=== PATIENT | male | born 1940 | race Caucasian/White ===

== ENCOUNTER 2017-12-25 14:03 | Inpatient (IN) ==
[2017-12-26] MEDS ORDERED: *HR* OxyCODONE Immed Rel 5 MG TABLET PO PRN (18:04)
[2017-12-26] MEDS: *HR* OxyCODONE Immed Rel 5 MG TABLET PO PRN (18:38)
[2017-12-26] MEDS: Aspirin 325 MG TABLET PO SCH (21:29)
[2017-12-26] MEDS: Latanoprost 2.5 ML BOTTLE BOTH EYES SCH (21:31)
[2017-12-27] MEDS: *HR* OxyCODONE Immed Rel 5 MG TABLET PO PRN ×4 (02:43→22:51)
[2017-12-27 07:02] LABS: Basophils # 0.1 K/mcL (0.0-0.2); Basophils % 0.6 %; Eosinophils # 0.6 K/mcL (0.0-0.6); Eosinophils % 6.5 %; Hematocrit 26.9 % (37.5-50.1); Hemoglobin 8.8 g/dL (12.9-16.9); Immature Granulocytes % 0.5 % (0-4); Lymphocytes # 2.2 K/mcL (0.6-4.6); Lymphocytes % 25.9 %; Mean Corpuscular HGB Conc 32.7 g/dL (31.6-35.5); Mean Corpuscular Hemoglobin 30.3 pg (28.0-33.3); Mean Corpuscular Volume 92.8 fL (83.0-100.0); Mean Platelet Volume 10.3 fL (9.4-12.4); Monocytes # 1.1 K/mcL (0.0-1.3); Monocytes % 13.2 %; Neutrophils # 4.5 K/mcL (1.6-8.9); Platelet Count 159 K/mcL (140-400); Red Cell Distribution Width 13.3 % (11.5-14.5); Segmented Neutrophils % 53.3 %
[2017-12-27 07:03] LABS: INR 1.1; Prothrombin Time 12.4 Seconds (9.4-12.1)
[2017-12-27 07:05] LABS: Activated Partial Thrombo Time 25.6 Seconds (26.0-36.0)
[2017-12-27 07:22] LABS: BUN/Creatinine Ratio 21 (6-26); Blood Urea Nitrogen 19 mg/dL (8-23); Calcium 8.8 mg/dL (8.6-10.3); Carbon Dioxide 27 mEq/L (23-29); Chloride 101 mEq/L (98-107); Glucose 128 mg/dL (70-105); Osmolality,Calculated 286 (280-300); Potassium 3.9 mEq/L (3.5-5.1); Sodium 136 mEq/L (136-145); eGFR For African Americans > 60 (> 60); eGFR For Non-African Americans > 60 (> 60)
[2017-12-27] MEDS: Aspirin 325 MG TABLET PO SCH ×2 (10:54→22:49)
[2017-12-27] MEDS: Cholecalciferol (D-3) 1,000 UNIT TABLET PO SCH (10:54)
[2017-12-27] MEDS: Multivit/Ca/Min/Fe/FA 1 TAB TABLET PO SCH (10:55)
[2017-12-27] MEDS: *HR* Metformin 500 MG TABLET PO SCH (10:55)
--- NOTE | 2017-12-27 11:37 | Internal Med History&Physical ---
Date of Encounter: 12/27/17 Time of Encounter: 11:34 Assessment and Plan (1) Total knee replacement status Current visit: Yes Status: Acute Patient with complaints of increased pain during mobilization while at physical therapy. States current pain medications have been effective. Left knee surgical incision appears healthy and intact but noted swelling. No ecchymosis noted. Continuous icing it in use. We will continue on current pain medications and will add Flexeril when necessary. Qualifiers: Laterality: left Qualified Code(s): Z96.652 - Presence of left artificial knee joint (2) Diabetes 1.5, managed as type 2 Current visit: Yes Status: Chronic No current issues. We will continue with metformin. We will continue to monitor glucose. (3) CAD (coronary artery disease) Current visit: Yes Status: Chronic No acute issues. Patient denies any chest discomfort or palpitations. Lungs are clear. We will continue his current medications. Qualifiers: Coronary Disease-Associated Artery/Lesion type: bypass graft, autologous artery Associated angina: without angina Qualified Code(s): I25.810 - Atherosclerosis of coronary artery bypass graft(s) without angina pectoris Internal Medicine - H&P: HPI Admitted From: Intrahospital Transfer Plans for Post Hospital Care: Home History of present illness: Mr. Vu is a 77 year old male who was admitted to this facility for physical therapy and rehabilitation following a left total knee replacement. Patient has a history of CAD, DM, DDD and LBP. Patient's recovery at [facility] was uneventful per medical records. Patient appears relaxed, but states that he has had increased pain when attempting to mobilize. Patient states that his pain medications seem to work well, but the duration is not long enough. Patient states today he had cut his therapy short due to the pain. Patient has continuous icing in place. Left knee surgical incision appears healthy and intact with no ecchymosis noted. Left knee does appear swollen, but only minimal limitations to range of motion. Patient denies any other discomforts or shortness of breath. Past Med Surg Social Fam HX - Past Medical History Medical history: arthritis, cancer, diabetes, hypertension, TIA, other - Past Surgical History Surgical History: ureteral stent - Social History Smoking Status: Never smoker Alcohol use: none Drug use: none - Family History Mother Hx Family Cancer: Yes Father Hx Family Neuromuscular Disorders: Yes Internal Medicine - H&P: Meds metFORMIN [Glucophage] 500 mg PO DAILY 01/13/16 [History] Atorvastatin [Lipitor] 40 mg PO HS 08/13/17 [History] Latanoprost [Xalatan] 1 drop BOTH EYES HS 08/13/17 [History] Multivit/Ca/Min/Fe/FA [Thera M Plus] 1 each PO DAILY 08/13/17 [History] Tamsulosin [Flomax] 0.4 mg PO DAILY 08/13/17 [History] Timolol Maleate 0.25% [Timolol Maleate 0.25%] 1 drop LEFT EYE 0900 08/13/17 [ History] Cholecalciferol (D-3) [Vitamin D] 1,000 unit PO DAILY 12/26/17 [History] Metoprolol [Lopressor] 25 mg PO BID 12/26/17 [History] 3 Allergy/AdvReac Type Severity Reaction Status Date / Time No Known Allergies Allergy Verified 01/13/16 19:18 All Systems PM: A 10-system review of systems was performed and is negative for pertinent findings except as documented above in the HPI. - Constitutional Constitutional: no chills, no fever(s), no night sweats - EENT Eyes: no change in vision, no discharge, no pain, no photophobia Ears: no ear discharge, no ear pain, no tinnitus Nose, mouth and throat: no dysphagia, no nasal discharge, no neck pain, no sore throat - Cardiovascular Cardiovascular ROS IM: no chest pain, no diaphoresis, no dyspnea, no lightheadedness, no palpitations, no syncope - Respiratory Respiratory: no cough, no dyspnea, no wheezing, no excessive phlegm production - Gastrointestinal Gastrointestinal: no abdominal pain, no diarrhea, no hematemesis, no hematochezia, no melena, no nausea, no vomiting - Musculoskeletal Musculoskeletal ROS IM: as per HPI, joint swelling, no numbness, no tingling - Integumentary Integumentary IM: no rash, no unusual bruising - Neurological Neurological ROS: no confusion, no convulsions, no focal weakness, no numbness, no tingling, no tremor(s) - Hematologic/Lymphatic Hematologic/Lymphatic: no easy bruising - Constitutional Vitals: Temp Pulse Resp BP Pulse Ox 97.7 F 71 18 160/89 93 12/27/17 07:48 12/27/17 07:48 12/27/17 07:48 12/27/17 07:48 12/27/17 07:48 General appearance: Present: A&O X 3, pleasant - Head Head exam: Present: atraumatic, normocephalic - Eye Eye exam: Present: PERRL, conjuntiva pink, sclera anicteric Pupils: Present: PERRL - Neck Neck exam general surgery: Present: supple, trachea midline. Absent: lymphadenopathy - Respiratory Respiratory exam: Present: CTAB. Absent: accessory muscle use, rales, rhonchi, wheezes Additional comments: Throughout upper chatman, but noted diminished posterior basilar chatman - Cardiovascular Cardiovascular exam: Present: RRR, +S1, +S2. Absent: diastolic murmur, gallop, rubs, systolic murmur - GI/Abdominal GI/Abdominal exam: Present: normal bowel sounds, soft, no peritoneal signs. Absent: distended, tenderness - Extremities Exam Extremities exam: Present: warm, radial pulses palpable and symmetrical. Absent : calf tenderness, cyanotic, pedal edema Additional comments: Left knee appears swollen. Left knee surgical incision appears healthy and intact. No ecchymosis. Minimal loss of range of motion currently. Continue with icing in place - Neurological Exam Neurological exam: Present: CN II-XII intact, oriented X3, no focal deficits. Absent: pronater drift, facial droop, speech deficit - Skin Skin exam: Present: dry, intact Internal Med - H&P Results - Labs CBC & Chem 7: 12/27/17 06:15 12/27/17 06:15 Labs: Short CBC 12/27/17 Range/Units 06:15 WBC 8.5 (4.3-11.1) K/mcL Hgb 8.8 L (12.9-16.9) g/dL Hct 26.9 L (37.5-50.1) % Plt Count 159 (140-400) K/mcL Neutrophils # 4.5 (1.6-8.9) K/mcL BMP 12/27/17 06:15 Sodium 136 Potassium 3.9 Chloride 101 Carbon Dioxide 27 BUN 19 Creatinine 0.90 Glucose 128 H Calcium 8.8 - VTE Documentation of Mechanical Device: Graduated compression elastic hosiery
[2017-12-27] MEDS ORDERED: cloNIDine HCl 0.1 MG TABLET PO PRN (13:01)
[2017-12-27] MEDS: Latanoprost 2.5 ML BOTTLE BOTH EYES SCH (22:55)
[2017-12-28] MEDS: tiZANidine 4 MG TABLET PO PRN ×3 (00:18→21:36)
[2017-12-28] MEDS: *HR* OxyCODONE Immed Rel 5 MG TABLET PO PRN ×2 (06:48→15:16)
[2017-12-28] MEDS: Cholecalciferol (D-3) 1,000 UNIT TABLET PO SCH (08:29)
[2017-12-28] MEDS: Multivit/Ca/Min/Fe/FA 1 TAB TABLET PO SCH (08:29)
[2017-12-28] MEDS: *HR* Metformin 500 MG TABLET PO SCH (08:29)
[2017-12-28] MEDS: Aspirin 325 MG TABLET PO SCH ×2 (08:29→21:26)
--- NOTE | 2017-12-28 09:21 | Internal Med Progress Note ---
Date of Encounter: 12/28/17 Time of Encounter: 09:19 - Assessment and plan (1) Diabetes 1.5, managed as type 2 Current Visit: Yes Status: Chronic Assessment and plan: stable on meds followup and adjust meds as needed (2) Total knee replacement status Current Visit: Yes Status: Acute Assessment and plan: stable , Pain is well controlled on present medications . Getting PT Qualifiers: Laterality: left Qualified Code(s): Z96.652 - Presence of left artificial knee joint (3) CAD (coronary artery disease) Current Visit: Yes Status: Chronic Assessment and plan: not an active issues at the present time continue present medications no chest SOB or any other symptoms to suggest active CAD Qualifiers: Coronary Disease-Associated Artery/Lesion type: bypass graft, autologous artery Associated angina: without angina Qualified Code(s): I25.810 - Atherosclerosis of coronary artery bypass graft(s) without angina pectoris (4) Anemia Current Visit: Yes Status: Chronic Assessment and plan: most likely due to blood loss , Labs ordered to assess for cause. Qualifiers: Anemia type: iron deficiency - Subjective Interval history: feeling much better . his pain and spasm have improved with pain meds and muscle relaer. No chest pain no nausea vomiting or diarrhea no fever or chills overall he feels fine and feels that he is getting better by the day - Constitutional Vitals: Temp Pulse Resp BP Pulse Ox 97.6 F 62 20 126/86 97 12/28/17 06:52 12/28/17 06:52 12/28/17 06:52 12/28/17 06:52 12/28/17 06:52 General appearance: Present: A&O X 3, pleasant, no acute distress - Head Head exam: Present: atraumatic - Eye Eye exam: Present: EOMI, PERRL - ENT ENT exam: Present: mucous membranes moist - Neck Neck exam general surgery: Present: full ROM, supple. Absent: lymphadenopathy, tenderness, nuchal rigidity - Respiratory Respiratory exam: Present: CTAB. Absent: respiratory distress, rhonchi, stridor , wheezes, tachypnea - Cardiovascular Cardiovascular exam: Present: RRR, +S1, +S2, systolic murmur. Absent: irregular rhythm, JVD, rubs Additional comments: soft systolic murmur - GI/Abdominal GI/Abdominal exam: Present: normal bowel sounds, soft. Absent: diminished bowel sounds, guarding, rebound, rigid - Extremities Exam Extremities exam: Present: full ROM. Absent: joint swelling, pedal edema - Neurological Exam Neurological exam: Present: CN II-XII intact, oriented X3, no focal deficits Internal Medicine: Result - Labs CBC & Chem 7: 12/27/17 06:15 12/27/17 06:15 - ABG Interpretation ABG results: PT/INR, D-dimer PT 12.4 Seconds (9.4-12.1) H 12/27/17 06:15 - VTE Documentation of Mechanical Device: Graduated compression elastic hosiery Consult Discharge Plan - Plan Referrals: Rob Cisneros MD [Primary Care Provider] -
[2017-12-28] MEDS: Latanoprost 2.5 ML BOTTLE BOTH EYES SCH (21:36)
[2017-12-29] MEDS: *HR* OxyCODONE Immed Rel 5 MG TABLET PO PRN ×2 (00:05→08:51)
--- NOTE | 2017-12-29 08:41 | Internal Med Progress Note ---
Date of Encounter: 12/29/17 Time of Encounter: 08:39 - Assessment and plan (1) Diabetes 1.5, managed as type 2 Current Visit: Yes Status: Chronic Assessment and plan: stable n meds no new change reasonable well controlled for his age (2) Total knee replacement status Current Visit: Yes Status: Acute Assessment and plan: stable wound healing well PT. Qualifiers: Laterality: left Qualified Code(s): Z96.652 - Presence of left artificial knee joint (3) CAD (coronary artery disease) Current Visit: Yes Status: Chronic Assessment and plan: stable no active issues Qualifiers: Coronary Disease-Associated Artery/Lesion type: bypass graft, autologous artery Associated angina: without angina Qualified Code(s): I25.810 - Atherosclerosis of coronary artery bypass graft(s) without angina pectoris (4) Anemia Current Visit: Yes Status: Chronic Assessment and plan: Labs ae pending at the present time On iron Qualifiers: Anemia type: iron deficiency - Subjective Interval history: feeling much better . slept well last night no new issues pIan is well control . Blood sugars are reasonable well controlled He is getting his PT no active complains at the present time - Constitutional Vitals: Temp Pulse Resp BP Pulse Ox 97.6 F 69 16 157/91 96 12/29/17 07:34 12/29/17 07:34 12/29/17 07:34 12/29/17 07:34 12/29/17 07:34 General appearance: Present: A&O X 3, pleasant, no acute distress - Head Head exam: Present: atraumatic - Eye Eye exam: Present: EOMI, PERRL Pupils: Present: PERRL - Neck Neck exam general surgery: Present: supple. Absent: tenderness, nuchal rigidity - Respiratory Respiratory exam: Present: CTAB. Absent: respiratory distress, rhonchi, stridor , wheezes - Cardiovascular Cardiovascular exam: Present: RRR, +S1, +S2, systolic murmur. Absent: irregular rhythm, JVD - GI/Abdominal GI/Abdominal exam: Present: normal bowel sounds, soft. Absent: guarding, rebound, rigid - Extremities Exam Extremities exam: Absent: pedal edema, tenderness Internal Medicine: Result - Labs CBC & Chem 7: 12/27/17 06:15 12/27/17 06:15 - ABG Interpretation ABG results: PT/INR, D-dimer PT 12.4 Seconds (9.4-12.1) H 12/27/17 06:15 - VTE Documentation of Mechanical Device: Graduated compression elastic hosiery Consult Discharge Plan - Plan Referrals: Rob Cisneros MD [Primary Care Provider] -
[2017-12-29] MEDS: Cholecalciferol (D-3) 1,000 UNIT TABLET PO SCH (08:51)
[2017-12-29] MEDS: *HR* Metformin 500 MG TABLET PO SCH (08:51)
[2017-12-29] MEDS: Multivit/Ca/Min/Fe/FA 1 TAB TABLET PO SCH (08:51)
[2017-12-29] MEDS: Aspirin 325 MG TABLET PO SCH ×2 (08:51→21:57)
[2017-12-29 09:04] LABS: Thyroid Stimulating Hormone 2.977 mcIU/mL (0.340-5.600)
[2017-12-29] MEDS: Latanoprost 2.5 ML BOTTLE BOTH EYES SCH (21:58)
[2017-12-30 07:48] LABS: Basophils # 0.1 K/mcL (0.0-0.2); Basophils % 0.4 %; Eosinophils # 0.2 K/mcL (0.0-0.6); Eosinophils % 1.4 %; Hematocrit 30.9 % (37.5-50.1); Immature Granulocytes % 0.4 % (0-4); Lymphocytes # 2.6 K/mcL (0.6-4.6); Lymphocytes % 22.5 %; Mean Corpuscular HGB Conc 32.4 g/dL (31.6-35.5); Mean Corpuscular Hemoglobin 30.4 pg (28.0-33.3); Mean Corpuscular Volume 93.9 fL (83.0-100.0); Mean Platelet Volume 9.4 fL (9.4-12.4); Monocytes # 1.6 K/mcL (0.0-1.3); Monocytes % 14.3 %; Platelet Count 267 K/mcL (140-400); Red Blood Count 3.29 M/mcL (4.19-5.50); Red Cell Distribution Width 13.9 % (11.5-14.5)
[2017-12-30 08:03] LABS: BUN/Creatinine Ratio 17 (6-26); Blood Urea Nitrogen 20 mg/dL (8-23); Calcium 9.4 mg/dL (8.6-10.3); Carbon Dioxide 27 mEq/L (23-29); Chloride 99 mEq/L (98-107); Glucose 157 mg/dL (70-105); Osmolality,Calculated 286 (280-300); Potassium 4.2 mEq/L (3.5-5.1); Sodium 135 mEq/L (136-145); eGFR For African Americans > 60 (> 60); eGFR For Non-African Americans > 60 (> 60)
[2017-12-30] MEDS: *HR* OxyCODONE Immed Rel 5 MG TABLET PO PRN ×2 (08:38→17:44)
[2017-12-30] MEDS: Multivit/Ca/Min/Fe/FA 1 TAB TABLET PO SCH (08:39)
[2017-12-30] MEDS: Aspirin 325 MG TABLET PO SCH ×2 (08:39→20:43)
[2017-12-30] MEDS: *HR* Metformin 500 MG TABLET PO SCH (08:39)
[2017-12-30] MEDS: Cholecalciferol (D-3) 1,000 UNIT TABLET PO SCH (08:39)
--- NOTE | 2017-12-30 15:22 | Internal Med Progress Note ---
Date of Encounter: 12/30/17 Time of Encounter: 15:20 - Assessment and plan (1) Total knee replacement status Current Visit: Yes Status: Acute Assessment and plan: No acute issues. Surgical incision appears healthy and intact. Left knee remains slightly swollen and will continue with continuous icing. Pain controlled well with current medications. Patient progressing well with physical therapy. Qualifiers: Laterality: left Qualified Code(s): Z96.652 - Presence of left artificial knee joint (2) Diabetes 1.5, managed as type 2 Current Visit: Yes Status: Chronic Assessment and plan: Acute issues. Glucose well managed with current regimen. We will continue with current medications (3) CAD (coronary artery disease) Current Visit: Yes Status: Chronic Assessment and plan: No acute issues. Patient denies any chest discomforts or shortness of breath. We will continue with current plan of care. Patient to continue with physical therapy Qualifiers: Coronary Disease-Associated Artery/Lesion type: bypass graft, autologous artery Associated angina: without angina Qualified Code(s): I25.810 - Atherosclerosis of coronary artery bypass graft(s) without angina pectoris - Time Spent With Patient less than 15 minutes - Subjective Interval history: No acute issue with patient denied any discomforts forms of breath. Patient continues to progress well with PT/OT - Constitutional Vitals: Temp Pulse Resp BP Pulse Ox 98.1 F 73 16 141/79 95 12/30/17 07:00 12/30/17 07:00 12/30/17 07:00 12/30/17 07:00 12/30/17 07:00 General appearance: Present: A&O X 3, pleasant, no acute distress - Head Head exam: Present: atraumatic, normocephalic - Eye Eye exam: Present: PERRL, conjuntiva pink, sclera anicteric Pupils: Present: PERRL - Neck Neck exam general surgery: Present: supple, trachea midline. Absent: lymphadenopathy - Respiratory Respiratory exam: Present: CTAB. Absent: accessory muscle use, rales, rhonchi, wheezes - Cardiovascular Cardiovascular exam: Present: RRR, +S1, +S2. Absent: diastolic murmur, gallop, rubs, systolic murmur - GI/Abdominal GI/Abdominal exam: Present: normal bowel sounds, soft, no peritoneal signs. Absent: distended, tenderness - Extremities Exam Extremities exam: Present: warm, radial pulses palpable and symmetrical. Absent : calf tenderness, cyanotic, pedal edema Additional comments: Left knee remains slightly swollen with surgical incision appearing healthy and intact. No ecchymosis noted. Patient continues with continuous icing - Neurological Exam Neurological exam: Present: CN II-XII intact, oriented X3, no focal deficits. Absent: pronater drift, facial droop, speech deficit - Skin Skin exam: Present: dry, intact Internal Medicine: Result - Labs CBC & Chem 7: 12/30/17 07:22 12/30/17 07:22 Labs: Short CBC 12/30/17 Range/Units 07:22 WBC 11.4 H (4.3-11.1) K/mcL Hgb 10.0 L (12.9-16.9) g/dL Hct 30.9 L (37.5-50.1) % Plt Count 267 D (140-400) K/mcL Neutrophils # 7.0 (1.6-8.9) K/mcL BMP 12/30/17 07:22 Sodium 135 L Potassium 4.2 Chloride 99 Carbon Dioxide 27 BUN 20 Creatinine 1.16 Glucose 157 H Calcium 9.4 - ABG Interpretation ABG results: PT/INR, D-dimer PT 12.4 Seconds (9.4-12.1) H 12/27/17 06:15 - VTE Documentation of Mechanical Device: Graduated compression elastic hosiery Consult Discharge Plan - Plan Referrals: Rob Cisneros MD [Primary Care Provider] -
[2017-12-30] MEDS: Latanoprost 2.5 ML BOTTLE BOTH EYES SCH (20:44)
[2017-12-30] MEDS: tiZANidine 4 MG TABLET PO PRN (20:44)
[2017-12-31] MEDS: *HR* OxyCODONE Immed Rel 5 MG TABLET PO PRN ×3 (04:03→20:27)
[2017-12-31] MEDS: Multivit/Ca/Min/Fe/FA 1 TAB TABLET PO SCH (08:02)
[2017-12-31] MEDS: Cholecalciferol (D-3) 1,000 UNIT TABLET PO SCH (08:02)
[2017-12-31] MEDS: *HR* Metformin 500 MG TABLET PO SCH (08:02)
[2017-12-31] MEDS: tiZANidine 4 MG TABLET PO PRN (08:02)
[2017-12-31] MEDS: Aspirin 325 MG TABLET PO SCH ×2 (08:02→20:27)
--- NOTE | 2017-12-31 08:57 | Internal Med Progress Note ---
Date of Encounter: 12/31/17 Time of Encounter: 08:54 - Assessment and plan (1) Diabetes 1.5, managed as type 2 Current Visit: Yes Status: Chronic Assessment and plan: Acute issues. Glucose well managed with current regimen. We will continue with current medications (2) Total knee replacement status Current Visit: Yes Status: Acute Assessment and plan: No acute issues. Surgical incision no signs of infection. Left knee remains slightly swollen and will continue with continuous icing. Pain controlled well with current medications. Patient progressing well with physical therapy. will continue to follow progress. Qualifiers: Laterality: left Qualified Code(s): Z96.652 - Presence of left artificial knee joint - Time Spent With Patient less than 15 minutes - Subjective Interval history: states pain is controlled with medications. L knee swelling and bruising around knee. last BM 2 days ago. had miralax this am. maintaining appetite and hydration. denies any issues. pariticpating well with thearpy. - Constitutional Vitals: Temp Pulse Resp BP Pulse Ox 97.9 F 65 16 138/72 96 12/31/17 07:11 12/31/17 07:11 12/31/17 07:11 12/31/17 07:11 12/31/17 07:11 General appearance: Present: A&O X 3, pleasant, no acute distress, answers questions appropriately - Head Head exam: Present: atraumatic, normocephalic - Eye Eye exam: Present: PERRL, conjuntiva pink, sclera anicteric Pupils: Present: PERRL - Neck Neck exam general surgery: Present: supple, trachea midline. Absent: lymphadenopathy - Respiratory Respiratory exam: Present: CTAB. Absent: accessory muscle use, rales, rhonchi, wheezes - Cardiovascular Cardiovascular exam: Present: RRR, +S1, +S2. Absent: diastolic murmur, gallop, rubs, systolic murmur - GI/Abdominal GI/Abdominal exam: Present: normal bowel sounds, soft, no peritoneal signs. Absent: distended, tenderness - Extremities Exam Extremities exam: Present: warm, radial pulses palpable and symmetrical. Absent : calf tenderness, cyanotic, pedal edema Additional comments: Left knee.. localized edema at knee. incision with drsg intact. no drainage. bruising surrounding knee - Neurological Exam Neurological exam: Present: CN II-XII intact, oriented X3, no focal deficits. Absent: pronater drift, facial droop, speech deficit - Skin Skin exam: Present: dry, intact Internal Medicine: Result - Labs CBC & Chem 7: 12/30/17 07:22 12/30/17 07:22 - ABG Interpretation ABG results: PT/INR, D-dimer PT 12.4 Seconds (9.4-12.1) H 12/27/17 06:15 - VTE Documentation of Mechanical Device: Graduated compression elastic hosiery Consult Discharge Plan - Plan Referrals: Rob Cisneros MD [Primary Care Provider] -
[2017-12-31] MEDS: Methocarbamol 500 MG TABLET PO SCH (17:23)
[2017-12-31] MEDS: Latanoprost 2.5 ML BOTTLE BOTH EYES SCH (20:28)
[2018-01-01] MEDS: Methocarbamol 500 MG TABLET PO SCH ×4 (00:30→23:51)
[2018-01-01] MEDS: *HR* OxyCODONE Immed Rel 5 MG TABLET PO PRN ×3 (06:14→20:17)
[2018-01-01] MEDS: Aspirin 325 MG TABLET PO SCH ×2 (08:24→20:16)
[2018-01-01] MEDS: *HR* Metformin 500 MG TABLET PO SCH (08:24)
[2018-01-01] MEDS: Multivit/Ca/Min/Fe/FA 1 TAB TABLET PO SCH (08:24)
[2018-01-01] MEDS: Cholecalciferol (D-3) 1,000 UNIT TABLET PO SCH (08:25)
--- NOTE | 2018-01-01 14:31 | Internal Med Progress Note ---
Date of Encounter: 01/01/18 Time of Encounter: 14:29 - Assessment and plan (1) Total knee replacement status Current Visit: Yes Status: Acute Assessment and plan: Clinically, unchanged. See comments in history of present illness above.. Qualifiers: Laterality: left Qualified Code(s): Z96.652 - Presence of left artificial knee joint (2) Constipation Current Visit: Yes Status: Acute Assessment and plan: Will review bowel regimen and give him a dose of magnesium citrate. Qualifiers: Constipation type: drug induced constipation Qualified Code(s): K59.03 - Drug induced constipation (3) Diabetes 1.5, managed as type 2 Current Visit: Yes Status: Chronic Assessment and plan: Clinically stable. Will continue current regimen. (4) CAD (coronary artery disease) Current Visit: Yes Status: Chronic Assessment and plan: Clinically stable without recent issues. Will continue current medications and watch hemoglobin to avoid stress on his heart. Qualifiers: Coronary Disease-Associated Artery/Lesion type: bypass graft, autologous artery Associated angina: without angina Qualified Code(s): I25.810 - Atherosclerosis of coronary artery bypass graft(s) without angina pectoris (5) Anemia Current Visit: Yes Status: Chronic Assessment and plan: I believe this is acute on chronic. We will follow and attribute the loss to his recent surgery. Qualifiers: Anemia type: iron deficiency Qualified Code(s): D50.0 - Iron deficiency anemia secondary to blood loss (chronic) - Time Spent With Patient less than 15 minutes - Subjective Interval history: Patient is still having significant left knee pain. He denies any change in intensity. He admits to recurrent constipation and feels like he is getting sick from it again as he had been last week. He has not had a bowel movement in the last 3 days. The patient has no shortness of breath, chest heaviness or pain, palpitation, chills or sweats, abdominal pain or changes in bowel habits, melena or hematochezia, other pain. Review of systems is otherwise unremarkable, except as mentioned above. I spoke with him about therapies concerns about training, balance and strength. In the rehabilitation team meeting today, was felt best to keep him for another 5-7 days. I reviewed our concerns about fall, injury to the knee or otherwise, etc. He agreed to stay for that length of time. - Constitutional Vitals: Temp Pulse Resp BP Pulse Ox 98 F 67 14 163/86 97 01/01/18 07:00 01/01/18 12:56 01/01/18 12:56 01/01/18 12:56 01/01/18 12:56 General appearance: Present: A&O X 3, pleasant, no acute distress, answers questions appropriately - Head Head exam: Present: atraumatic, normal inspection, normocephalic - Respiratory Respiratory exam: Present: CTAB. Absent: accessory muscle use, rales - Cardiovascular Cardiovascular exam: Present: RRR. Absent: systolic murmur - GI/Abdominal GI/Abdominal exam: Present: normal bowel sounds, soft. Absent: hepatomegaly, mass, splenomegaly, tenderness - Extremities Exam Extremities exam: Present: normal capillary refill. Absent: calf tenderness, pedal edema Internal Medicine: Result - Labs CBC & Chem 7: 12/30/17 07:22 12/30/17 07:22 - ABG Interpretation ABG results: PT/INR, D-dimer PT 12.4 Seconds (9.4-12.1) H 12/27/17 06:15 - VTE Documentation of Mechanical Device: Graduated compression elastic hosiery Consult Discharge Plan - Plan Referrals: Rob Cisneros MD [Primary Care Provider] -
--- NOTE | 2018-01-01 19:11 | Physcial Medicine-Consult Note ---
Date of Encounter: 01/01/18 Time of Encounter: 18:00 Physical Medicine - AP (1) Total knee replacement status Status: Acute Assessment and plan: Continue rehab, DVT prophylaxis,Ice prn Code(s): Z96.659 - Presence of unspecified artificial knee joint SNOMED Code(s ): 7777880936512 Physical Medicine - HPI - Data of Consult Patient: new to practice Consult date: 01/01/18 Requesting Physician: Leland Cruz MD Primary Care Provider: Rob Cisneros - Consult Narrative History of present illness: Mr. Vu is a 77 year old male S/P LTKR. Hallucinations, poor insight. Slow progress with therapies. CC: My knee hurts. Past Med Surg Social Fam HX - Past Medical History Attestation: Yes The following information was validated with the patient. Medical history: arthritis, cancer, diabetes, hypertension, TIA, other - Past Surgical History Surgical History: ureteral stent - Social History Smoking Status: Never smoker Alcohol use: none Drug use: none - Family History Mother Hx Family Cancer: Yes Father Hx Family Neuromuscular Disorders: Yes Medications and Allergies metFORMIN [Glucophage] 500 mg PO DAILY 01/13/16 [History] Atorvastatin [Lipitor] 40 mg PO HS 08/13/17 [History] Latanoprost [Xalatan] 1 drop BOTH EYES HS 08/13/17 [History] Multivit/Ca/Min/Fe/FA [Thera M Plus] 1 each PO DAILY 08/13/17 [History] Tamsulosin [Flomax] 0.4 mg PO DAILY 08/13/17 [History] Timolol Maleate 0.25% [Timolol Maleate 0.25%] 1 drop LEFT EYE 0900 08/13/17 [ History] Cholecalciferol (D-3) [Vitamin D] 1,000 unit PO DAILY 12/26/17 [History] Metoprolol [Lopressor] 25 mg PO BID 12/26/17 [History] 3 Allergy/AdvReac Type Severity Reaction Status Date / Time No Known Allergies Allergy Verified 01/13/16 19:18 All systems: reviewed and no additional remarkable complaints except as stated ( HPI) Physical Medicine - Exam - Constitutional Vitals: Temp Pulse Resp BP Pulse Ox 97.6 F 75 16 149/80 99 01/01/18 19:00 01/01/18 19:00 02/21/18 19:00 01/01/18 19:00 01/01/18 19:00 - Extremities Exam Additional comments: Left knee 110 to -3 degrees ROM min mares edema, moderate ecchymosis. No edema at the ankle. Physical Medicine - Results - Labs CBC & Chem 7: 12/30/17 07:22 12/30/17 07:22 Consult Discharge Plan - Plan Referrals: Rob Cisneros MD [Primary Care Provider] -
[2018-01-01] MEDS: Psyllium 1 PACKET POWD.PACK PO SCH (20:19)
[2018-01-01] MEDS: Latanoprost 2.5 ML BOTTLE BOTH EYES SCH (20:20)
[2018-01-02] MEDS: *HR* OxyCODONE Immed Rel 5 MG TABLET PO PRN ×2 (09:07→17:20)
[2018-01-02] MEDS: Aspirin 325 MG TABLET PO SCH ×2 (09:07→20:20)
[2018-01-02] MEDS: *HR* Metformin 500 MG TABLET PO SCH (09:07)
[2018-01-02] MEDS: Cholecalciferol (D-3) 1,000 UNIT TABLET PO SCH (09:08)
[2018-01-02] MEDS: Methocarbamol 500 MG TABLET PO SCH ×3 (09:08→23:04)
[2018-01-02] MEDS: Psyllium 1 PACKET POWD.PACK PO SCH ×2 (09:08→20:21)
[2018-01-02] MEDS: Multivit/Ca/Min/Fe/FA 1 TAB TABLET PO SCH (09:08)
--- NOTE | 2018-01-02 14:00 | Internal Med Progress Note ---
Date of Encounter: 01/02/18 Time of Encounter: 11:20 - Assessment and plan (1) Total knee replacement status Current Visit: Yes Status: Acute Assessment and plan: Clinically, unchanged. Will continue with therapies for training and safety assessment, as planned.. Qualifiers: Laterality: left Qualified Code(s): Z96.652 - Presence of left artificial knee joint (2) Constipation Current Visit: Yes Status: Acute Assessment and plan: No response yet to magnesium citrate. However, with hyperactive bowel sounds, she should have results today. If not, will repeat and/or consider a fleets enema, etc.. Qualifiers: Constipation type: drug induced constipation Qualified Code(s): K59.03 - Drug induced constipation (3) Diabetes 1.5, managed as type 2 Current Visit: Yes Status: Chronic Assessment and plan: Clinically stable. Will continue current regimen. (4) CAD (coronary artery disease) Current Visit: Yes Status: Chronic Assessment and plan: Clinically stable without recent issues. Continue current regimen.. Qualifiers: Coronary Disease-Associated Artery/Lesion type: bypass graft, autologous artery Associated angina: without angina Qualified Code(s): I25.810 - Atherosclerosis of coronary artery bypass graft(s) without angina pectoris (5) Anemia Current Visit: Yes Status: Chronic Assessment and plan: I believe this is acute on chronic. Stable, in terms of vital signs and symptoms. We will follow and attribute the loss to his recent surgery. Qualifiers: Anemia type: iron deficiency Qualified Code(s): D50.0 - Iron deficiency anemia secondary to blood loss (chronic) - Time Spent With Patient less than 15 minutes - Subjective Interval history: Patient is without new complaint. He continues to have moderate to moderately severe left knee pain that is slightly improved versus yesterday. He states he has not had a bowel movement, even though he took his 150 mL bottle of technetium citrate, yesterday. The patient has no shortness of breath, chest heaviness or pain, palpitation, chills or sweats, abdominal pain or changes in bowel habits, melena or hematochezia, other pain. Review of systems is otherwise unremarkable, except as mentioned above. . - Constitutional Vitals: Temp Pulse Resp BP Pulse Ox 97.9 F 70 16 151/82 95 01/02/18 07:00 01/02/18 07:00 01/02/18 07:00 01/02/18 07:00 01/02/18 07:00 General appearance: Present: A&O X 3, pleasant, no acute distress, answers questions appropriately - Head Head exam: Present: atraumatic, normal inspection, normocephalic - Respiratory Respiratory exam: Present: CTAB. Absent: accessory muscle use - Cardiovascular Cardiovascular exam: Present: RRR. Absent: systolic murmur - GI/Abdominal GI/Abdominal exam: Present: hyperactive bowel sounds, soft. Absent: hepatomegaly, mass, splenomegaly, tenderness Additional comments: Obese and therefore difficult to palpate deeply. - Extremities Exam Extremities exam: Present: normal capillary refill. Absent: calf tenderness, pedal edema Additional comments: Knee is mildly warm without drainage or erythema. Consistent with typical postoperative course for total knee replacement. Internal Medicine: Result - Labs CBC & Chem 7: 12/30/17 07:22 12/30/17 07:22 - ABG Interpretation ABG results: PT/INR, D-dimer PT 12.4 Seconds (9.4-12.1) H 12/27/17 06:15 - VTE Documentation of Mechanical Device: Graduated compression elastic hosiery Consult Discharge Plan - Plan Referrals: Rob Cisneros MD [Primary Care Provider] -
[2018-01-02] MEDS: Latanoprost 2.5 ML BOTTLE BOTH EYES SCH (20:22)
[2018-01-03] MEDS: Multivit/Ca/Min/Fe/FA 1 TAB TABLET PO SCH (08:32)
[2018-01-03] MEDS: Cholecalciferol (D-3) 1,000 UNIT TABLET PO SCH (08:32)
[2018-01-03] MEDS: *HR* Metformin 500 MG TABLET PO SCH (08:32)
[2018-01-03] MEDS: Psyllium 1 PACKET POWD.PACK PO SCH ×2 (08:32→20:11)
[2018-01-03] MEDS: Aspirin 325 MG TABLET PO SCH ×2 (08:32→20:11)
[2018-01-03] MEDS: Methocarbamol 500 MG TABLET PO SCH ×3 (08:32→23:50)
[2018-01-03] MEDS: *HR* OxyCODONE Immed Rel 5 MG TABLET PO PRN ×2 (10:06→21:13)
--- NOTE | 2018-01-03 11:32 | Internal Med Progress Note ---
Date of Encounter: 01/03/18 Time of Encounter: 11:29 - Assessment and plan (1) Total knee replacement status Current Visit: Yes Status: Acute Assessment and plan: Clinically, unchanged. Will continue with therapies for training and safety assessment, as planned. Will continue with continuous icing. Current pain meds have been effective. Qualifiers: Laterality: left Qualified Code(s): Z96.652 - Presence of left artificial knee joint (2) Diabetes 1.5, managed as type 2 Current Visit: Yes Status: Chronic Assessment and plan: Clinically stable. Will continue current regimen. (3) CAD (coronary artery disease) Current Visit: Yes Status: Chronic Assessment and plan: Clinically stable without recent issues. Continue current regimen.. 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 Pt does have c/o continued constipation, stating that the current meds have not been very effective. Pt is without any discomforts forms of breath. Patient continues to progress well with PT/OT - Constitutional Vitals: Temp Pulse Resp BP Pulse Ox 98.6 F 78 18 123/74 100 01/03/18 07:58 01/03/18 07:58 01/03/18 07:58 01/03/18 07:58 01/03/18 07:58 General appearance: Present: A&O X 3, pleasant, no acute distress, answers questions appropriately - Head Head exam: Present: atraumatic, normocephalic - Eye Eye exam: Present: PERRL, conjuntiva pink, sclera anicteric Pupils: Present: PERRL - Neck Neck exam general surgery: Present: supple, trachea midline. Absent: lymphadenopathy - Respiratory Respiratory exam: Present: CTAB. Absent: accessory muscle use, rales, rhonchi, wheezes - Cardiovascular Cardiovascular exam: Present: RRR, +S1, +S2. Absent: diastolic murmur, gallop, rubs, systolic murmur - GI/Abdominal GI/Abdominal exam: Present: normal bowel sounds, soft, no peritoneal signs. Absent: distended, tenderness - Extremities Exam Extremities exam: Present: warm, radial pulses palpable and symmetrical. Absent : calf tenderness, cyanotic, pedal edema Additional comments: Left knee continues to have moderate amount of swelling, but no ecchymosis and surgical incision remains healthy and intact. - Neurological Exam Neurological exam: Present: CN II-XII intact, oriented X3, no focal deficits. Absent: pronater drift, facial droop, speech deficit - Skin Skin exam: Present: dry, intact Internal Medicine: Result - Labs CBC & Chem 7: 12/30/17 07:22 12/30/17 07:22 - ABG Interpretation ABG results: PT/INR, D-dimer PT 12.4 Seconds (9.4-12.1) H 12/27/17 06:15 - VTE Documentation of Mechanical Device: Graduated compression elastic hosiery Consult Discharge Plan - Plan Referrals: Rob Cisneros MD [Primary Care Provider] - (Follow up January at 1:00 PM [facility] [address] [place] [address] )
[2018-01-03] MEDS: Latanoprost 2.5 ML BOTTLE BOTH EYES SCH (20:12)
[2018-01-04] MEDS: *HR* OxyCODONE Immed Rel 5 MG TABLET PO PRN ×3 (07:07→20:25)
--- NOTE | 2018-01-04 08:26 | Internal Med Progress Note ---
Date of Encounter: 01/04/18 Time of Encounter: 08:24 - Assessment and plan (1) Diabetes 1.5, managed as type 2 Current Visit: Yes Status: Chronic Assessment and plan: No new change Blood are reasonably well controlled Continue present meds . (2) Total knee replacement status Current Visit: Yes Status: Acute Assessment and plan: No new change in PT pain is reasonably well controlled with present meds Qualifiers: Laterality: left Qualified Code(s): Z96.652 - Presence of left artificial knee joint (3) CAD (coronary artery disease) Current Visit: Yes Status: Chronic Assessment and plan: stable continue present meds Systolic BP slightly high today but previous values were well controlled continue to watch and adjust as needed Qualifiers: Coronary Disease-Associated Artery/Lesion type: bypass graft, autologous artery Associated angina: without angina Qualified Code(s): I25.810 - Atherosclerosis of coronary artery bypass graft(s) without angina pectoris (4) Anemia Current Visit: Yes Status: Chronic Assessment and plan: on iron stable Qualifiers: Anemia type: iron deficiency - Subjective Interval history: Seen as followup and on weekend coverage. He is doing fine . Actively participating in his rehab Somewhat pain today however pain meds do help - Constitutional Vitals: Temp Pulse Resp BP Pulse Ox 98.0 F 70 16 160/63 95 01/04/18 06:00 01/04/18 06:00 01/04/18 06:00 01/04/18 06:00 01/04/18 06:00 General appearance: Present: cooperative, A&O X 3, pleasant, no acute distress, answers questions appropriately - Head Head exam: Present: atraumatic - Eye Eye exam: Present: PERRL. Absent: scleral icterus, conjuntiva pink Pupils: Present: PERRL - Neck Neck exam general surgery: Present: supple. Absent: tenderness, nuchal rigidity - Respiratory Respiratory exam: Present: CTAB. Absent: respiratory distress, rhonchi, stridor , wheezes, tachypnea - Cardiovascular Cardiovascular exam: Present: +S1, +S2, systolic murmur. Absent: JVD Additional comments: soft systolic murmur - GI/Abdominal GI/Abdominal exam: Present: normal bowel sounds, soft. Absent: rebound, rigid, tenderness - Extremities Exam Extremities exam: Absent: pedal edema, tenderness - Incison Incision: Present: clean and dry, intact Internal Medicine: Result - Labs CBC & Chem 7: 12/30/17 07:22 12/30/17 07:22 - ABG Interpretation ABG results: PT/INR, D-dimer PT 12.4 Seconds (9.4-12.1) H 12/27/17 06:15 - VTE Documentation of Mechanical Device: Graduated compression elastic hosiery Consult Discharge Plan - Plan Referrals: Rob Cisneros MD [Primary Care Provider] - (Follow up January at 1:00 PM [facility] [address], [place] [phone])
[2018-01-04] MEDS: Psyllium 1 PACKET POWD.PACK PO SCH ×2 (08:39→22:07)
[2018-01-04] MEDS: Methocarbamol 500 MG TABLET PO SCH ×3 (08:40→23:24)
[2018-01-04] MEDS: *HR* Metformin 500 MG TABLET PO SCH (08:40)
[2018-01-04] MEDS: Multivit/Ca/Min/Fe/FA 1 TAB TABLET PO SCH (08:40)
[2018-01-04] MEDS: Cholecalciferol (D-3) 1,000 UNIT TABLET PO SCH (08:40)
[2018-01-04] MEDS: Aspirin 325 MG TABLET PO SCH ×2 (08:40→20:23)
[2018-01-04] MEDS: Latanoprost 2.5 ML BOTTLE BOTH EYES SCH (20:27)
[2018-01-05] MEDS: *HR* OxyCODONE Immed Rel 5 MG TABLET PO PRN ×4 (05:17→23:04)
--- NOTE | 2018-01-05 08:29 | Internal Med Progress Note ---
Date of Encounter: 01/05/18 Time of Encounter: 08:26 - Assessment and plan (1) Diabetes 1.5, managed as type 2 Current Visit: Yes Status: Chronic Assessment and plan: No new change Blood are reasonably well controlled Continue present meds .Noted an episode of high blood sugars on 500 mg metformin only increase to BID dose (2) Total knee replacement status Current Visit: Yes Status: Acute Assessment and plan: stable improving .In PT pain is well controlled Qualifiers: Laterality: left Qualified Code(s): Z96.652 - Presence of left artificial knee joint (3) CAD (coronary artery disease) Current Visit: Yes Status: Chronic Assessment and plan: stable no chest pain tolerating his PT well Qualifiers: Coronary Disease-Associated Artery/Lesion type: bypass graft, autologous artery Associated angina: without angina Qualified Code(s): I25.810 - Atherosclerosis of coronary artery bypass graft(s) without angina pectoris (4) Anemia Current Visit: Yes Status: Chronic Assessment and plan: stable Qualifiers: Anemia type: iron deficiency - Subjective Interval history: Seen as followup and on weekend coverage. He is doing fine . Pain is much better controlled increases when he walks Blood sugars reasonably well controlled no Chest pain SOB or any other complains - Constitutional Vitals: Temp Pulse Resp BP Pulse Ox 98 F 84 12 181/93 97 01/05/18 07:40 01/05/18 07:40 01/05/18 07:40 01/05/18 07:40 01/05/18 07:40 General appearance: Present: cooperative, A&O X 3, pleasant, no acute distress, answers questions appropriately - Head Head exam: Present: atraumatic - Eye Eye exam: Present: PERRL. Absent: scleral icterus, conjuntiva pink Pupils: Present: PERRL - Neck Neck exam general surgery: Present: supple. Absent: tenderness, nuchal rigidity - Respiratory Respiratory exam: Present: CTAB. Absent: decreased breath sounds, respiratory distress, rhonchi, stridor, wheezes, tachypnea - Cardiovascular Cardiovascular exam: Present: RRR, +S1, +S2, systolic murmur. Absent: irregular rhythm, JVD - GI/Abdominal GI/Abdominal exam: Present: normal bowel sounds, soft. Absent: firm, guarding, rebound, rigid, no peritoneal signs - Extremities Exam Extremities exam: Absent: pedal edema, warm - Incison Incision: Present: clean and dry, intact Comments: mild bruises on left leg - Neurological Exam Neurological exam: Present: CN II-XII intact, oriented X3, no focal deficits. Absent: facial droop, speech deficit Internal Medicine: Result - Labs CBC & Chem 7: 12/30/17 07:22 12/30/17 07:22 - ABG Interpretation ABG results: PT/INR, D-dimer PT 12.4 Seconds (9.4-12.1) H 12/27/17 06:15 - VTE Documentation of Mechanical Device: Graduated compression elastic hosiery Consult Discharge Plan - Plan Referrals: Rob Cisneros MD [Primary Care Provider] - (Follow up January at 1:00 PM [facility] [address] [place] [address] )
[2018-01-05] MEDS: Multivit/Ca/Min/Fe/FA 1 TAB TABLET PO SCH (09:06)
[2018-01-05] MEDS: Cholecalciferol (D-3) 1,000 UNIT TABLET PO SCH (09:06)
[2018-01-05] MEDS: Psyllium 1 PACKET POWD.PACK PO SCH ×2 (09:07→21:59)
[2018-01-05] MEDS: Methocarbamol 500 MG TABLET PO SCH ×3 (09:07→23:04)
[2018-01-05] MEDS: Aspirin 325 MG TABLET PO SCH ×2 (09:07→21:59)
[2018-01-05] MEDS: *HR* Metformin 500 MG TABLET PO SCH ×2 (09:34→16:28)
[2018-01-05] MEDS: Latanoprost 2.5 ML BOTTLE BOTH EYES SCH (21:58)
[2018-01-06 06:59] LABS: Basophils # 0.1 K/mcL (0.0-0.2); Basophils % 0.8 %; Eosinophils # 0.5 K/mcL (0.0-0.6); Eosinophils % 6.4 %; Hematocrit 32.6 % (37.5-50.1); Hemoglobin 10.5 g/dL (12.9-16.9); Immature Granulocytes % 0.5 % (0-4); Lymphocytes % 26.5 %; Mean Corpuscular HGB Conc 32.2 g/dL (31.6-35.5); Mean Corpuscular Hemoglobin 30.4 pg (28.0-33.3); Mean Corpuscular Volume 94.5 fL (83.0-100.0); Mean Platelet Volume 8.9 fL (9.4-12.4); Monocytes # 0.9 K/mcL (0.0-1.3); Monocytes % 11.1 %; Neutrophils # 4.2 K/mcL (1.6-8.9); Platelet Count 295 K/mcL (140-400); Red Blood Count 3.45 M/mcL (4.19-5.50); Red Cell Distribution Width 15.3 % (11.5-14.5); Segmented Neutrophils % 54.7 %
[2018-01-06 07:13] LABS: BUN/Creatinine Ratio 13 (6-26); Blood Urea Nitrogen 15 mg/dL (8-23); Calcium 9.1 mg/dL (8.6-10.3); Carbon Dioxide 28 mEq/L (23-29); Chloride 101 mEq/L (98-107); Glucose 143 mg/dL (70-105); Osmolality,Calculated 283 (280-300); Potassium 4.4 mEq/L (3.5-5.1); Sodium 135 mEq/L (136-145); eGFR For African Americans > 60 (> 60); eGFR For Non-African Americans > 60 (> 60)
[2018-01-06] MEDS: *HR* Metformin 500 MG TABLET PO SCH ×2 (08:13→17:21)
[2018-01-06] MEDS: Cholecalciferol (D-3) 1,000 UNIT TABLET PO SCH (08:13)
[2018-01-06] MEDS: Methocarbamol 500 MG TABLET PO SCH ×3 (08:13→22:30)
[2018-01-06] MEDS: Multivit/Ca/Min/Fe/FA 1 TAB TABLET PO SCH (08:13)
[2018-01-06] MEDS: Aspirin 325 MG TABLET PO SCH ×2 (08:13→19:29)
[2018-01-06] MEDS: Psyllium 1 PACKET POWD.PACK PO SCH ×2 (08:14→19:29)
[2018-01-06] MEDS: *HR* OxyCODONE Immed Rel 5 MG TABLET PO PRN ×3 (08:14→22:30)
--- NOTE | 2018-01-06 12:03 | Internal Med Progress Note ---
Date of Encounter: 01/06/18 Time of Encounter: 12:00 - Assessment and plan (1) Diabetes 1.5, managed as type 2 Current Visit: Yes Status: Chronic Assessment and plan: controlled. monitor FSBS> will adjust meds as necessary. (2) Total knee replacement status Current Visit: Yes Status: Acute Assessment and plan: participating well with therapy. will follow progress. continue pain meds as they are effective. f/u with ortho as scheduled. Qualifiers: Laterality: left Qualified Code(s): Z96.652 - Presence of left artificial knee joint - Time Spent With Patient less than 15 minutes - Subjective Interval history: states pain is controlled with medications. L knee swelling and bruising around knee with blister on distal end. c/o nausea. no vomitting. bowel moving normal maintaining appetite and hydration. denies any issues. participating well with therapy. - Constitutional Vitals: Temp Pulse Resp BP Pulse Ox 97.9 F 63 16 133/77 97 01/06/18 07:57 01/06/18 07:57 01/06/18 07:57 01/06/18 07:57 01/06/18 07:57 General appearance: Present: cooperative, A&O X 3, pleasant, no acute distress, answers questions appropriately - Head Head exam: Present: atraumatic, normocephalic - Eye Eye exam: Present: PERRL, conjuntiva pink, sclera anicteric Pupils: Present: PERRL - Neck Neck exam general surgery: Present: supple, trachea midline. Absent: lymphadenopathy - Respiratory Respiratory exam: Present: CTAB. Absent: accessory muscle use, rales, rhonchi, wheezes - Cardiovascular Cardiovascular exam: Present: RRR, +S1, +S2. Absent: diastolic murmur, gallop, rubs, systolic murmur - GI/Abdominal GI/Abdominal exam: Present: normal bowel sounds, soft, no peritoneal signs. Absent: distended, tenderness - Extremities Exam Extremities exam: Present: warm, radial pulses palpable and symmetrical. Absent : calf tenderness, cyanotic, pedal edema Additional comments: left knee bruising surrounding incision and over mares area. blister distal to incision. no signs of infection. - Neurological Exam Neurological exam: Present: CN II-XII intact, oriented X3, no focal deficits. Absent: pronater drift, facial droop, speech deficit - Skin Skin exam: Present: dry, intact Internal Medicine: Result - Labs CBC & Chem 7: 01/06/18 06:40 01/06/18 06:40 Labs: Short CBC 01/06/18 Range/Units 06:40 WBC 7.7 (4.3-11.1) K/mcL Hgb 10.5 L (12.9-16.9) g/dL Hct 32.6 L (37.5-50.1) % Plt Count 295 (140-400) K/mcL Neutrophils # 4.2 (1.6-8.9) K/mcL BMP 01/06/18 06:40 Sodium 135 L Potassium 4.4 Chloride 101 Carbon Dioxide 28 BUN 15 Creatinine 1.12 Glucose 143 H Calcium 9.1 - ABG Interpretation ABG results: PT/INR, D-dimer PT 12.4 Seconds (9.4-12.1) H 12/27/17 06:15 - VTE Documentation of Mechanical Device: Graduated compression elastic hosiery Consult Discharge Plan - Plan Referrals: Rob Cisneros MD [Primary Care Provider] - (Follow up January at 1:00 PM [facility] [address], [place] [phone])
--- NOTE | 2018-01-06 15:44 | Physical Med Progress Note ---
Date of Encounter: 01/06/18 Time of Encounter: 13:00 Assessment and Plan (1) Total knee replacement status Current Visit: Yes Status: Acute Assessment and plan: Good progress. Supervision with ADL. His can help at home. Discharge set for home tomorrow. Home health RN and PT Qualifiers: Laterality: left Qualified Code(s): Z96.652 - Presence of left artificial knee joint Physical Medicine-PN: Subj Interval history: Doing well in therapies. Still resistant to using the wheeled walker. Knee ROM good. Standing tolerance good. - Constitutional Vitals: Vital Signs Temp Pulse Resp BP Pulse Ox 01/06/18 07:57 97.9 F 63 16 133/77 97 01/05/18 18:44 98.0 F 65 16 126/70 95 Intake and Output 01/05/18 01/06/18 01/06/18 23:59 07:59 15:59 Intake Total 360 / 360 500 / 500 840 / 840 Output Total 1050 / 1050 1600 / 1600 450 / 450 Balance -690 / -690 -1100 / -1100 390 / 390 Intake: Oral 360 / 360 500 / 500 840 / 840 Output: Urine 1050 / 1050 1600 / 1600 450 / 450 Other: Meal Dinner Lunch Percent of Meal Consumed 100% 90% Weight 103.51 kg Blood Glucose* 168 141 127 Patient Weight 01/06/18 23:59 Weight 103.51 kg - Extremities Exam Extremities exam: Present: full ROM, joint swelling, normal inspection Physical Medicine-PN: Obj Data - Labs CBC & Chem 7: 01/06/18 06:40 01/06/18 06:40 Labs: Laboratory Results - last 24 hr 01/05/18 01/05/18 01/05/18 07:37 16:32 19:50 WBC RBC Hgb Hct MCV MCH MCHC RDW Plt Count MPV Immature Gran % Seg Neutrophils % Lymphocytes % Monocytes % Eosinophils % Basophils % Neutrophils # Lymphocytes # Monocytes # Eosinophils # Basophils # APTT Sodium Potassium Chloride Carbon Dioxide BUN Creatinine Est GFR ( Amer) Est GFR (Non-Af Amer) BUN/Creatinine Ratio Glucose POC Glucose 138 H 136 H 168 H Calculated Osmolality Calcium 01/06/18 01/06/18 01/06/18 06:40 06:40 06:40 WBC 7.7 RBC 3.45 L Hgb 10.5 L Hct 32.6 L MCV 94.5 MCH 30.4 MCHC 32.2 RDW 15.3 H Plt Count 295 MPV 8.9 L Immature Gran % 0.5 Seg Neutrophils % 54.7 Lymphocytes % 26.5 Monocytes % 11.1 Eosinophils % 6.4 Basophils % 0.8 Neutrophils # 4.2 Lymphocytes # 2.0 Monocytes # 0.9 Eosinophils # 0.5 Basophils # 0.1 APTT 27.7 Sodium 135 L Potassium 4.4 Chloride 101 Carbon Dioxide 28 BUN 15 Creatinine 1.12 Est GFR ( Amer) > 60 Est GFR (Non-Af Amer) > 60 BUN/Creatinine Ratio 13 Glucose 143 H POC Glucose Calculated Osmolality 283 Calcium 9.1 01/06/18 01/06/18 06:49 11:29 WBC RBC Hgb Hct MCV MCH MCHC RDW Plt Count MPV Immature Gran % Seg Neutrophils % Lymphocytes % Monocytes % Eosinophils % Basophils % Neutrophils # Lymphocytes # Monocytes # Eosinophils # Basophils # APTT Sodium Potassium Chloride Carbon Dioxide BUN Creatinine Est GFR ( Amer) Est GFR (Non-Af Amer) BUN/Creatinine Ratio Glucose POC Glucose 141 H 127 H Calculated Osmolality Calcium - ABG Interpretation ABG results: PT/INR, D-dimer PT 12.4 Seconds (9.4-12.1) H 12/27/17 06:15 - VTE Documentation of Mechanical Device: Graduated compression elastic hosiery Consult Discharge Plan - Plan Referrals: Rob Cisneros MD [Primary Care Provider] - (Follow up January at 1:00 PM [facility] [address] [place] [address] )
[2018-01-06] MEDS: Latanoprost 2.5 ML BOTTLE BOTH EYES SCH (19:29)
[2018-01-07 07:31] VITALS: BP 153/77
[2018-01-07] MEDS: Multivit/Ca/Min/Fe/FA 1 TAB TABLET PO SCH (08:11)
[2018-01-07] MEDS: Methocarbamol 500 MG TABLET PO SCH (08:11)
[2018-01-07] MEDS: *HR* Metformin 500 MG TABLET PO SCH (08:11)
[2018-01-07] MEDS: Aspirin 325 MG TABLET PO SCH (08:11)
[2018-01-07] MEDS: Cholecalciferol (D-3) 1,000 UNIT TABLET PO SCH (08:11)
[2018-01-07] MEDS: *HR* OxyCODONE Immed Rel 5 MG TABLET PO PRN (08:11)
[2018-01-07] MEDS: Psyllium 1 PACKET POWD.PACK PO SCH (08:12)
--- NOTE | 2018-01-07 09:50 | Physician Discharge Referral ---
Home Health/Hosp Referral Info Transfer to: Home Health Provider in Charge Post Discharge: PCP - Diagnosis (1) Diabetes 1.5, managed as type 2 Priority: Secondary Status: Chronic (2) Total knee replacement status Priority: Primary Status: Acute - Respiratory Orders Smoking Cessation: Smoking cessation has been advised. For more information, call the [place] Tobacco Quit Line at [phone]-NOW. - Diet/Nutrition Diet/Nutrition Orders: Regular - Activity Activity Orders: Ambulate, Walker - Services Needed Following services are medically necessary services: Nursing, Physical Therapy - Transfer Medications Home Medications: metFORMIN [Glucophage] 500 mg PO DAILY 01/13/16 [History] Atorvastatin [Lipitor] 40 mg PO HS 08/13/17 [History] Latanoprost [Xalatan] 1 drop BOTH EYES HS 08/13/17 [History] Multivit/Ca/Min/Fe/FA [Thera M Plus] 1 each PO DAILY 08/13/17 [History] Tamsulosin [Flomax] 0.4 mg PO DAILY 08/13/17 [History] Timolol Maleate 0.25% [Timolol Maleate 0.25%] 1 drop LEFT EYE 0900 08/13/17 [ History] Cholecalciferol (D-3) [Vitamin D] 1,000 unit PO DAILY 12/26/17 [History] Metoprolol [Lopressor] 25 mg PO BID 12/26/17 [History] Allergies/Adverse Reactions: 3 Allergy/AdvReac Type Severity Reaction Status Date / Time No Known Allergies Allergy Verified 01/13/16 19:18 Certification: Further, I certify that my clinical findings support that this patient is homebound (i.e. absences from home require considerable and taxing effort and are for medical reasons or quaker services or infrequently or short duration when for other reasons) because: Homebound Reason: Patient requires assistance of a person or device to safely leave home, Leaving home requires considerable and taxing effort due to condition Attestation: My signature below is to certify that this patient is under my care and that I, or nurse practitioner, or a physician's digital sales assistant working with me, has a face-to -face encounter with this patient.
--- NOTE | 2018-01-07 09:53 | Discharge Summary ---
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 Continue and follow-up PCP (2) Total knee replacement status Priority: Primary Status: Acute Comments: Healing. No signs of infection. Blister at distal end of incision. With bruising along maers area. Painting controlled with current pain medications. Follow up with ortho as scheduled. Continue home physical therapy and nursing. Qualifiers: Laterality: left Qualified Code(s): Z96.652 - Presence of left artificial knee joint Hospital course: Mr. Vu is a 77 year old male discharging from inpatient rehab facility. Status post left total knee replacement. No complications during this stay. Participated well with therapy and pain controlled with current pain medications. Will follow-up with ortho and discharging with home physical therapy and nursing. Discharge discussed with: patient - Time Spent with Patient Total time spent providing and/or coordinating discharge services: Less than 30 minutes - Discharge Medications Home Medications: metFORMIN [Glucophage] 500 mg PO DAILY 01/13/16 [History] Atorvastatin [Lipitor] 40 mg PO HS 08/13/17 [History] Latanoprost [Xalatan] 1 drop BOTH EYES HS 08/13/17 [History] Multivit/Ca/Min/Fe/FA [Thera M Plus] 1 each PO DAILY 08/13/17 [History] Tamsulosin [Flomax] 0.4 mg PO DAILY 08/13/17 [History] Timolol Maleate 0.25% 1 drop LEFT EYE 0900 08/13/17 [History] Cholecalciferol (D-3) [Vitamin D] 1,000 unit PO DAILY 12/26/17 [History] Metoprolol [Lopressor] 25 mg PO BID 12/26/17 [History] Allergies/Adverse Reactions: 3 Allergy/AdvReac Type Severity Reaction Status Date / Time No Known Allergies Allergy Verified 01/13/16 19:18 Date of admission: 12/26/17 17:25 Primary care physician: Rob Cisneros Consults: 12/26/17 18:06 Consult to Physical Medicine/Rehab [CONS] Routine Reason for Consult: s/p LTKR Call Completed: No 12/26/17 18:07 Consult to Occupational Therapy [CONS] Routine Comment: Evaluate, develop and implement POC Reason for Consult: S/P LTKR Consult to Physical Therapy [CONS] Routine Comment: Evaluate, develop and implement POC Reason for Consult: s/p LTKR Consult to Recreational Therapy [CONS] Routine Comment: Evaluate, develop and implement POC Discharging clinician: Silvia Godfrey Anticipated date of discharge: 01/07/18 - Constitutional Vitals: Temp Pulse Resp BP Pulse Ox 97.9 F 79 16 153/77 97 01/07/18 07:31 01/07/18 07:31 01/07/18 07:31 01/07/18 07:31 01/07/18 07:31 General appearance: Present: cooperative, A&O X 3, pleasant, no acute distress, answers questions appropriately - Head Head exam: Present: atraumatic, normocephalic - Eye Eye exam: Present: PERRL, conjuntiva pink, sclera anicteric Pupils: Present: PERRL - Neck Neck exam general surgery: Present: supple, trachea midline. Absent: lymphadenopathy - Respiratory Respiratory exam: Present: CTAB. Absent: accessory muscle use, rales, rhonchi, wheezes - Cardiovascular Cardiovascular exam: Present: RRR, +S1, +S2. Absent: diastolic murmur, gallop, rubs, systolic murmur - GI/Abdominal GI/Abdominal exam: Present: normal bowel sounds, soft, no peritoneal signs. Absent: distended, tenderness - Extremities Exam Extremities exam: Present: warm, radial pulses palpable and symmetrical. Absent : calf tenderness, cyanotic, pedal edema Additional comments: Left knee incision well approximated dressing dry and intact. Blister on distal end of incision healing. No signs of infection. Ecchymosis present on mares area. - Neurological Exam Neurological exam: Present: CN II-XII intact, oriented X3, no focal deficits. Absent: pronater drift, facial droop, speech deficit - Skin Skin exam: Present: dry, intact - Patient Status Disposition: Home Health Service Condition: Good Functional capacity at discharge: uses cane/walker Overall status at discharge: patient is progressing back to baseline - Discharge Instructions Follow Up With: Piotr Simpson MD [Non-Partnered Physician] - 01/09/18 1:00 pm Rob Cisneros MD [Primary Care Provider] - (Please schedule follow up in 1 -2 weeks.) - Diet and Activity Activity: as per physical therapy Diet: advance to your usual diet - VTE Documentation of Mechanical Device: Graduated compression elastic hosiery
== END 2018-01-07 11:06 | disposition home health service (06) | DRG 560 ==
LOC: INPGRE 12-26 17:25

== ENCOUNTER 2019-12-07 10:51 | Inpatient (IN) ==
[2019-12-07] MEDS ORDERED: *HR* OxyCODONE Immed Rel 5 MG TABLET PO PRN (18:04)
[2019-12-07] MEDS ORDERED: *HR* OxyCODONE Immed Rel 5 MG TABLET PO SCH (20:00)
[2019-12-07] MEDS: Latanoprost 2.5 ML BOTTLE BOTH EYES SCH (20:54)
[2019-12-07] MEDS: Gabapentin 300 MG CAPSULE PO SCH (20:57)
[2019-12-07] MEDS: Sennosides 8.6 MG TABLET PO SCH (20:58)
[2019-12-07] MEDS: Acetaminophen 325 MG TABLET PO SCH (20:58)
[2019-12-08 05:25] LABS: Basophils # 0.1 K/mcL (0.0-0.2); Basophils % 0.7 %; Eosinophils # 0.6 K/mcL (0.0-0.6); Eosinophils % 7.1 %; Hemoglobin 11.2 g/dL (12.9-16.9); Immature Granulocytes % 0.2 % (0-4); Lymphocytes # 2.4 K/mcL (0.6-4.6); Lymphocytes % 27.1 %; Mean Corpuscular HGB Conc 32.9 g/dL (31.6-35.5); Mean Corpuscular Hemoglobin 30.8 pg (28.0-33.3); Mean Corpuscular Volume 93.4 fL (83.0-100.0); Mean Platelet Volume 10.5 fL (9.4-12.4); Monocytes # 0.9 K/mcL (0.0-1.3); Monocytes % 10.5 %; Neutrophils # 4.8 K/mcL (1.6-8.9); Platelet Count 148 K/mcL (140-400); Red Blood Count 3.64 M/mcL (4.19-5.50); Red Cell Distribution Width 13.2 % (11.5-14.5); Segmented Neutrophils % 54.4 %; White Blood Count 8.7 K/mcL (4.3-11.1)
[2019-12-08] MEDS: *HR* Enoxaparin 40 MG/0.4 ML SYRINGE SQ SCH (05:34)
[2019-12-08 05:39] LABS: BUN/Creatinine Ratio 17 (6-26); Blood Urea Nitrogen 18 mg/dL (8-23); Calcium 8.8 mg/dL (8.6-10.3); Carbon Dioxide 25 mEq/L (23-29); Chloride 107 mEq/L (98-107); Glucose 186 mg/dL (70-105); Osmolality,Calculated 295 (280-300); Potassium 3.9 mEq/L (3.5-5.1); Sodium 139 mEq/L (136-145); eGFR For African Americans > 60 (> 60); eGFR For Non-African Americans > 60 (> 60)
[2019-12-08] MEDS ORDERED: *HR* Metformin 500 MG TABLET PO SCH (09:00)
[2019-12-08] MEDS: Gabapentin 300 MG CAPSULE PO SCH ×3 (09:19→20:23)
[2019-12-08] MEDS: *HR* Metformin 500 MG TABLET PO SCH (09:19)
[2019-12-08] MEDS: Acetaminophen 325 MG TABLET PO SCH ×3 (09:19→20:23)
[2019-12-08] MEDS: Cholecalciferol (D-3) 1,000 UNIT (25MCG) TABLET PO SCH (09:19)
[2019-12-08] MEDS: Celecoxib 200 MG CAPSULE PO SCH (09:19)
[2019-12-08] MEDS: Multivit/Ca/Min/Fe/FA 1 TAB TABLET PO SCH (09:19)
[2019-12-08] MEDS: Sennosides 8.6 MG TABLET PO SCH ×2 (09:19→20:23)
[2019-12-08] MEDS: Latanoprost 2.5 ML BOTTLE BOTH EYES SCH (20:27)
[2019-12-09] MEDS: *HR* Enoxaparin 40 MG/0.4 ML SYRINGE SQ SCH (06:13)
[2019-12-09] MEDS: Gabapentin 300 MG CAPSULE PO SCH ×3 (08:27→20:26)
[2019-12-09] MEDS: Acetaminophen 325 MG TABLET PO SCH ×3 (08:27→20:25)
[2019-12-09] MEDS: Sennosides 8.6 MG TABLET PO SCH ×2 (08:27→20:26)
[2019-12-09] MEDS: *HR* Metformin 500 MG TABLET PO SCH (08:28)
[2019-12-09] MEDS: Multivit/Ca/Min/Fe/FA 1 TAB TABLET PO SCH (08:28)
[2019-12-09] MEDS: Cholecalciferol (D-3) 1,000 UNIT (25MCG) TABLET PO SCH (08:28)
[2019-12-09] MEDS: Celecoxib 200 MG CAPSULE PO SCH (08:28)
[2019-12-09] MEDS: Latanoprost 2.5 ML BOTTLE BOTH EYES SCH (20:26)
[2019-12-10] MEDS: *HR* Enoxaparin 40 MG/0.4 ML SYRINGE SQ SCH (05:40)
[2019-12-10] MEDS: Sennosides 8.6 MG TABLET PO SCH ×2 (07:40→21:26)
[2019-12-10] MEDS: Celecoxib 200 MG CAPSULE PO SCH (07:40)
[2019-12-10] MEDS: Multivit/Ca/Min/Fe/FA 1 TAB TABLET PO SCH (07:40)
[2019-12-10] MEDS: Gabapentin 300 MG CAPSULE PO SCH ×3 (07:40→21:24)
[2019-12-10] MEDS: *HR* Metformin 500 MG TABLET PO SCH (07:40)
[2019-12-10] MEDS: Cholecalciferol (D-3) 1,000 UNIT (25MCG) TABLET PO SCH (07:40)
[2019-12-10] MEDS: Acetaminophen 325 MG TABLET PO SCH ×3 (07:41→21:25)
[2019-12-10] MEDS: cephALEXin 500 MG CAPSULE PO SCH ×2 (15:48→21:25)
[2019-12-10] MEDS: Latanoprost 2.5 ML BOTTLE BOTH EYES SCH (21:25)
[2019-12-11] MEDS: *HR* Enoxaparin 40 MG/0.4 ML SYRINGE SQ SCH (06:13)
[2019-12-11 07:19] VITALS: BP 148/84
[2019-12-11] MEDS: Multivit/Ca/Min/Fe/FA 1 TAB TABLET PO SCH (10:24)
[2019-12-11] MEDS: Sennosides 8.6 MG TABLET PO SCH (10:24)
[2019-12-11] MEDS: Gabapentin 300 MG CAPSULE PO SCH (10:24)
[2019-12-11] MEDS: Celecoxib 200 MG CAPSULE PO SCH (10:24)
[2019-12-11] MEDS: Acetaminophen 325 MG TABLET PO SCH (10:24)
[2019-12-11] MEDS: *HR* Metformin 500 MG TABLET PO SCH (10:24)
[2019-12-11] MEDS: Cholecalciferol (D-3) 1,000 UNIT (25MCG) TABLET PO SCH (10:24)
[2019-12-11] MEDS: cephALEXin 500 MG CAPSULE PO SCH ×2 (10:25→12:21)
== END 2019-12-11 12:53 | disposition home or self-care (01) | DRG 560 ==
LOC: INPGRE 16:05
PROVIDERS: ADMIT Family Medicine; ATTEND Family Medicine